=== PATIENT | female | born 1970 | race Caucasian/White ===

== ENCOUNTER → 2024-02-20 11:52 | Outpatient (REF) | payer OTHER, SELFPAY | LOC: RAD 11:52 | PROVIDERS: ATTENDING PHYSICIAN Student in an Organized Health Care Education/Training Program | DX: M25.561 Pain in right knee (principal); M25.562 Pain in left knee | CPT/HCPCS: 73564 ==

== ENCOUNTER → 2024-08-13 14:50 | Outpatient (REF) | payer OTHER, SELFPAY | LOC: PAVMRI 14:50 | PROVIDERS: ATTENDING PHYSICIAN Physician Assistant Surgical; FAMILY PHYSICIAN Student in an Organized Health Care Education/Training Program | DX: M25.562 Pain in left knee (principal); M25.561 Pain in right knee | CPT/HCPCS: 73721 ==

== ENCOUNTER 2024-12-03 04:27 | Emergency (ER) | payer OTHER, SELFPAY ==
[2024-12-03 04:28] VITALS: BP 155/94
[2024-12-03 04:59] VITALS: BMI 36.8
[2024-12-03] MEDS: CORTISPORIN OTIC SUSPENSION 1 DROP OTIC (05:22)
--- NOTE | 2024-12-03 06:49 | ED.GENMED ---
History of Present Illness
General
Chief Complaint: Ear Problem
Source: patient
Exam Limitations: none
Time Seen by Provider: 12/03/24 04:45
Nursing documentation reviewed up to this point in time: agreed with
History of Present Illness
History of Present Illness:
Note:
CHIEF COMPLAINT(S)
Ear pain and swelling.
HISTORY OF PRESENT ILLNESS
The patient is a 54-year-old female who presents with ear pain and swelling. She reports having ear pain that she describes as a sensation of swelling and a feeling of the ear being swollen shut. The pain started after she developed an ear infection
and progressively worsened. The patient mentions that she was prescribed an antibiotic for the ear infection by Dr. Ina Silva at [facility], but she is unsure of the name of the medication. The patient apologizes for not bringing the
medication with her.
ADDITIONAL HISTORY OBTAINED FROM SOURCES OTHER THAN THE PATIENT
According to the patient, her , who typically assists with her medical queries, has a rare form of Alzheimers disease and is unable to provide further details about her medication.
REVIEW OF SYSTEMS
- Ear: Reports right ear pain and sensation of swelling.
- General: No fever mentioned.
PHYSICAL EXAM
- Ear: The ear canal is noted to be very small. Pain and swelling reported by the patient.
- Nursing notes reviewed and vital signs reviewed.
PLAN
A wick will be placed in the ear to aid in the application of antibiotic drops deeper into the ear canal. The patient is advised to continue with prescribed antibiotic drops, and assistance to determine the specific type of antibiotic being used is
offered.
DIFFERENTIAL DIAGNOSIS
The Differential Diagnosis includes, in no particular order and is not limited to:
1. Otitis externa
2. Otitis media
3. Foreign body in the ear canal
4. Ear canal blockage
5. Ear canal trauma
6. Fungal ear infection
7. Eustachian tube dysfunction
8. Neuralgia affecting the ear
9. Allergy-related ear swelling
10. Auricular cellulitis
CARE-UPDATE
12/03/24 - 05:17
Patient expressed discomfort about the upcoming procedure. Explained that the initial application might feel scratchy. Switched to a new technique involving a wetting agent. Patient consented to proceed and was reassured.
Disposition:
SUMMARY OF ENCOUNTER
A 54-year-old female presented to the emergency department with right ear pain and swelling. Her ear was significantly swollen. After evaluation, an ear wick was placed to facilitate the administration of antibiotic drops, specifically polymyxin B
with hydrocortisone, to help manage the infection and reduce swelling. The patient reported improvement in her ear pain following the procedure.
EMERGENCY TREATMENTS ADMINISTERED
An ear wick was inserted, and polymyxin B with hydrocortisone ear drops were administered.
ASSESSMENT
The patient appears to have an ear infection leading to significant swelling, likely otitis externa.
PLAN
The patient is to continue using the prescribed polymyxin B with hydrocortisone drops and monitor for any changes in symptoms. If symptoms persist or worsen, she should seek further medical evaluation.
MEDICATION RECONCILIATION
1. Polymyxin B with hydrocortisone ear drops administered. Prescription provided for continued use.
MEDICAL DECISION MAKING
- Number and Complexity of Problems Addressed: Chronic conditions affecting care; Differential Diagnosis includes otitis externa, otitis media, auricular cellulitis, and possibly allergy-related ear swelling or fungal ear infection.
- Data:
Category 1: Non-emergency department records reviewed. Clinical information was obtained from an independent historian as the patient has limited information.
- Risk: Prescription medication was prescribed, specifically for an ear infection.
DIAGNOSIS
1. Otitis Externa (ICD-10: H60.9)
Review of Systems
Review of Systems
Allergies reviewed?: Yes
All Other Systems: ROS reviewed and negative except as documented in HPI and ROS
Constitutional: Denies fever or chills
EENT: Reports other (Right ear pain and swelling)
Phy Exam
General Physical Exam
General Presentation: well appearing and mild distress
General age: appears stated age
General Skin: warm and dry
General Habitus: normal
Pulmonary Exam
Pulmonary Exam: no respiratory distress and no cough
Musculoskeletal Exam
Musculoskeletal Exam: full ROM
Skin Exam
Skin Exam: normal color and warm/dry
Psychiatric Exam
Psychiatric Exam: normal mood/affect
Course
Orders/Labs/Results
Orders:
Orders
12/03/24 05:14
Neomycin/Polymyxin/Hc [Cortisporin Otic Suspension] See Dose Instructions OTIC NOW STA
Polymyxin B/Trimethoprim [Polytrim Ophthalmic Solution] 1 drop .ROUTE .STK-MED ONE
Vital Signs
Initial and Last Documented VS:
Initial Vital Signs
Temp Pulse Resp BP Pulse Ox
98.2 F 92 18 155/94 97
12/03/24 04:28 12/03/24 04:28 12/03/24 04:28 12/03/24 04:28 12/03/24 04:28
Last Documented Vital Signs
Temp Pulse Resp BP Pulse Ox
98.2 F 92 18 155/94 97
12/03/24 04:28 12/03/24 04:28 12/03/24 04:28 12/03/24 04:28 12/03/24 04:28
*Pulse Oximetry
SaO2: 97
Oxygen Mode of Delivery: Room air
Patient hypoxic: no
*Critical Care Note
Total Time (30-74mins, 75-104mins- exclusive of procedures): Not Applicable
ED Attending Note
-
Portions of this chart may have been created with voice recognition software.� Occasional wrong word or��sound alike� substitutions may have occurred due to the inherent limitations of voice recognition software.
Discharge Plan
Departure
Patient Disposition: Home (Routine Discharge)
Date of Disposition: 12/03/24
Time of Disposition: 06:52
Patient with high blood pressure during this ER visit?: Yes
Condition: Fair
Discharge Problem:
Acute Otitis Externa
Instructions: BLOOD PRESSURE, Outer Ear Infection (DC)
Referrals:
Ina Silva PA-C [Family Provider, Family Practice]
Activity Restrictions/Additional Instructions:
Thank You for choosing [facility].
It was a pleasure meeting you and taking part in your care. We hope for your continued healing and wellness.
Please read discharge instructions in their entirety. However, they are for general education and may not describe your exact diagnosis at discharge. Information on your ER visit and medical conditions were discussed with you along with appropriate
follow up information...
If indicated, please take your medications as instructed and indicated on discharge paperwork.
Please schedule a follow up appointment as directed. Call to schedule an appointment
Please return to the emergency department with ANY change in, persisting, or worsening of symptoms. If any of your symptoms do not improve, or persist, or become more severe within 6-12 hours, please return to the emergency department for further
care.
Please return to the emergency department if you develop a headache, neck pain/stiffness, fever greater than 100.4F, chest pain, shortness of breath, persistent nausea, vomiting, slurred speech, difficulty walking, numbness/tingling, weakness, signs
of infection or any other symptoms that are worrisome to you.
If you have any questions or concerns please do not hesitate to call the Hospital at or E-mail me directly at [email or web address]
Interventions
Interventions:
*Risk Screen - Suicide Last Done: 12/03/24 04:28
*General Assessment Last Done: 12/03/24 04:56
*Neglect/Abuse Screening Last Done: 12/03/24 04:28
*ED- Fall Risk Assessment Last Done: 12/03/24 04:56
*ED COVID-19 Vaccine History Last Done: 12/03/24 04:56
Discharge Date and Time
Print Language: TURKISH
== END 2024-12-03 07:15 | disposition home or self-care (01) ==
LOC: EMR 04:27
PROVIDERS: EMERGENCY PHYSICIAN Student in an Organized Health Care Education/Training Program; FAMILY PHYSICIAN Student in an Organized Health Care Education/Training Program
DX: H60.501 Unspecified acute noninfective otitis externa, right ear (principal); F02.80 Dementia in other diseases classified elsewhere, unspecified severity, without behavioral disturbance, psychotic disturbance, mood disturbance, and anxiety; G30.9 Alzheimer's disease, unspecified; I10 Essential (primary) hypertension
CPT/HCPCS: 99283

== ENCOUNTER → 2025-01-31 08:36 | Outpatient (REF) | payer OTHER, SELFPAY | LOC: RAD 08:36 | PROVIDERS: ATTENDING PHYSICIAN Student in an Organized Health Care Education/Training Program | DX: M79.641 Pain in right hand (principal); M79.642 Pain in left hand | CPT/HCPCS: 73130 ==